=== PATIENT | female | born 1985 | race African-American/Black ===

== ENCOUNTER → 2017-02-04 | Outpatient (CLI) | payer OTHER ==
[2014-10-26 18:09] VITALS: BP 144/94
[2017-02-04 11:06] LABS: BASOPHILS # (AUTO) 0.1 X10^3/uL (0.0-0.1); BASOPHILS % (AUTO) 1.2 % (0.2-1.0); EOSINOPHILS # (AUTO) 0.2 x10^3/uL (0.0-0.2); EOSINOPHILS % (AUTO) 1.5 % (0.9-2.9); HEMATOCRIT 39.9 % (36.0-47.0); HEMOGLOBIN 13.7 g/dL (12.0-16.0); LYMPHOCYTES # (AUTO) 3.5 X10^3/uL (1.3-2.9); LYMPHOCYTES % (AUTO) 34.3 % (21.0-51.0); MEAN CORPUSCULAR HEMOGLOBIN 31.4 pg (27.0-34.0); MEAN CORPUSCULAR HGB CONC 34.2 g/dL (33.0-35.0); MEAN CORPUSCULAR VOLUME 91.7 fL (80.0-100.0); MEAN PLATELET VOLUME 9.2 fL (7.4-11.0); MONOCYTES # (AUTO) 0.6 x10^3/uL (0.3-0.8); MONOCYTES % (AUTO) 5.8 % (0.0-13.0); NEUTROPHILS # (AUTO) 5.8 x10^3/uL (2.2-4.8); NEUTROPHILS % (AUTO) 57.2 % (42.0-75.0); PLATELET COUNT 223 X10^3/uL (150.0-450.0); RED BLOOD COUNT 4.35 X10^6/uL (3.5-5.4); RED CELL DISTRIBUTION WIDTH 13.4 % (11.6-16.5); WHITE BLOOD COUNT 10.2 X10^3/uL (3.6-10.0)
[2017-02-04 11:20] LABS: ALANINE AMINOTRANSFERASE 22 Units/L (12-78); ALBUMIN 3.6 g/dL (3.4-5.0); ALKALINE PHOSPHATASE 75 Units/L (46-116); ASPARTATE AMINO TRANSFERASE 17 Units/L (15-37); BLOOD UREA NITROGEN 13 mg/dL (7-18); CALCIUM 8.4 mg/dL (8.5-10.1); CARBON DIOXIDE 23.7 mmol/L (21-32); CHLORIDE 107 mmol/L (98-107); CREATININE 0.83 mg/dL (0.55-1.02); SODIUM 140 mmol/L (136-145); T4 (THYROXINE) 7.7 ug/dL (4.7-13.3); TOTAL PROTEIN 7.4 g/dL (6.4-8.2); TSH (3RD GENERATION) 1.495 uIU/mL (0.358-3.74); eGFR BLACK RACES > 60 (>60); eGFR NON BLACK RACES > 60 (>60)
== END ==
LOC: LAB 10:35
PROVIDERS: ATTEND Internal Medicine
DX: E11.9 Type 2 diabetes mellitus without complications (principal); E03.8 Other specified hypothyroidism; M79.7 Fibromyalgia
CPT/HCPCS: 36415; 80053; 84436; 84443; 85025

== ENCOUNTER → 2017-05-30 | Outpatient (CLI) | payer OTHER ==
[2014-10-26 18:09] VITALS: BP 144/94
--- NOTE | 2017-05-30 14:10 | RAD ---
HISTORY: Back Pain Study: 5 views of the lumbar spine Comparison: None. Findings: Normal alignment without subluxation or listhesis. Disc height loss at L5-S1. Vertebral body heights are normal. Sacroiliac joints are unremarkable. No evidence for acute fracture can be identified. IMPRESSION: 1. Significant disc height loss at L5-S1. Reported By:
== END | disposition home or self-care (01) ==
LOC: RAD 12:18
PROVIDERS: ATTEND Internal Medicine
DX: M54.5 Low back pain (principal)
CPT/HCPCS: 72110

== ENCOUNTER 2024-10-14 05:22 | Inpatient (IN) ==
--- NOTE | 2024-10-14 05:39 | DR.ALLERGY ---
HPI Time Seen Time Seen by Provider: 10/14/24 05:38 HPI Comment HPI Comment: She noticed swelling around her lips yesterday which has worsened to include her entire face today; no problems with throat pain, difficulty swallowing, cough, wheezing or sob; she was placed on lisinopril about a week ago and denies changes in food intake; this has never happened before H PMH Past Surgical History: Yes Surgical History: Cholecystectomy Family History Family Medical History: Diabetes Mellitus, Coronary Artery Disease and Hypertension Social History Do you use any recreational Drugs:: No ROS Review of Systems Constitutional: No Symptoms Reported Eyes: No Symptoms Reported ENTM: See HPI and Mouth Swelling; negative Mouth Pain, Throat Pain or Throat Swelling Respiratoy: No Symptoms Reported; negative Brassy Cough or Stridor Cardiovascular: No Symptoms Reported Gastrointestinal/Abdominal: No Symptoms Reported Genitourinary: No Symptoms Reported Neurological: No Symptoms Reported Musculoskeletal: No Symptoms Reported Integumentary: No Symptoms Reported Hematologic/Lymphatic: No Symptoms Reported Endocrine: No Symptoms Reported Psychiatric: No Symptoms Reported PE Vitals Vital Signs: Temp Pulse Resp BP Pulse Ox O2 Del Method 10/14/24 06:45 66 12 10/14/24 06:30 147/89 10/14/24 06:30 70 21 98 10/14/24 06:16 67 14 99 10/14/24 06:01 155/85 10/14/24 06:01 155/85 10/14/24 06:01 75 16 97 10/14/24 06:01 155/85 10/14/24 06:00 71 16 99 10/14/24 05:45 97 H 18 98 10/14/24 05:32 90 11 L 98 10/14/24 05:31 98.5 F 101 H 20 153/94 99 Room Air 10/14/24 05:30 178/86 10/14/24 05:30 178/86 10/14/24 05:29 95 H 11 L 98 10/14/24 05:28 153/92 10/14/24 05:28 153/92 10/14/24 05:25 190/124 10/14/24 05:25 190/124 Constitutional Limitations: No Limitations General Appearance: Alert and In No Apparent Distress Head Head Exam: Other (entire lower face including cheeks and lips swollen extensively, able to talk w/o issues) Eyes Eye exam: Normal Appearance ENT ENT Exam: Normal Oropharynx Mouth Exam: Lip Swelling; negative Drooling, Trismus or Tongue Swelling Neck Neck Exam: Normal Inspection Chest Chest Inspection: Normal Inspection Respiratory Respiratory Exam: Normal Lung Sounds Bilat Cardiovascular Cardiovascular Exam: Regular Rate and Normal Rhythm Abdominal Exam Abdominal Exam: Normal Inspection, Normal Bowel Sounds and Soft Extremities Extremities Exam: Normal Inspection Back Back Exam: Normal Inspection Neurologic Neurological Exam: Alert and Oriented X3 Psychiatric Psychiatric Exam: Normal Affect and Normal Mood Skin Skin Exam: Warm, Dry, Intact and Normal Color ROR Labs Reviewed Laboratory Results Reviewed?: Yes 10/14/24 05:48 10/14/24 05:48 Laboratory: WBC 9.2 X10^3/uL (3.6-10.0) 10/14/24 05:48 RBC 4.32 X10^6/uL (3.5-5.4) 10/14/24 05:48 Hgb 13.7 g/dL (12.0-16.0) 10/14/24 05:48 Hct 40.0 % (36.0-47.0) 10/14/24 05:48 MCV 92.7 fL (80.0-100.0) 10/14/24 05:48 MCH 31.6 pg (27.0-34.0) 10/14/24 05:48 MCHC 34.1 g/dL (33.0-35.0) 10/14/24 05:48 RDW 14.1 % (11.6-16.5) 10/14/24 05:48 Plt Count 295 X10^3/uL (150.0-450.0) 10/14/24 05:48 MPV 8.1 fL (7.4-11.0) 10/14/24 05:48 Neut % (Auto) 56.0 % (42.0-75.0) 10/14/24 05:48 Lymph % (Auto) 33.3 % (21.0-51.0) 10/14/24 05:48 [place] % (Auto) 7.4 % (0.0-13.0) 10/14/24 05:48 Eos % (Auto) 2.1 % (0.9-2.9) 10/14/24 05:48 Baso % (Auto) 1.2 % (0.2-1.0) H 10/14/24 05:48 Neut # (Auto) 5.2 x10^3/uL (2.2-4.8) H 10/14/24 05:48 Lymph # (Auto) 3.1 X10^3/uL (1.3-2.9) H 10/14/24 05:48 [place] # (Auto) 0.7 x10^3/uL (0.3-0.8) 10/14/24 05:48 Eos # (Auto) 0.2 x10^3/uL (0.0-0.2) 10/14/24 05:48 Baso # (Auto) 0.1 X10^3/uL (0.0-0.1) 10/14/24 05:48 Absolute Nucleated RBC 0.3 /100WBC 10/14/24 05:48 Sodium 142 mmol/L (136-145) 10/14/24 05:48 Corrected Sodium TNP 10/14/24 05:48 Potassium 3.1 mmol/L (3.5-5.1) L 10/14/24 05:48 Chloride 106 mmol/L (98-107) 10/14/24 05:48 Carbon Dioxide 28.2 mmol/L (21-32) 10/14/24 05:48 BUN 12 mg/dL (7-18) 10/14/24 05:48 Creatinine 0.85 mg/dL (0.55-1.02) 10/14/24 05:48 Est GFR (MDRD) Af Amer > 60 (>60) 10/14/24 05:48 Est GFR (MDRD) Non-Af > 60 (>60) 10/14/24 05:48 Glucose 109 mg/dL (65-99) H 10/14/24 05:48 Calcium 8.2 mg/dL (8.5-10.1) L 10/14/24 05:48 Corrected Calcium TNP 10/14/24 05:48 Total Bilirubin 0.30 mg/dL (0.2-1.0) 10/14/24 05:48 AST 19 Units/L (15-37) 10/14/24 05:48 ALT 23 Units/L (12-78) 10/14/24 05:48 Alkaline Phosphatase 77 Units/L (46-116) 10/14/24 05:48 Total Protein 7.3 g/dL (6.4-8.2) 10/14/24 05:48 Albumin 3.5 g/dL (3.4-5.0) 10/14/24 05:48 Globulin 3.8 g/dL (2.5-4.5) 10/14/24 05:48 Albumin/Globulin Ratio 0.9 Ratio (1.1-2.1) L 10/14/24 05:48 Other Results Comments: Pt is a/o x 4, nontoxic appearing w/o signs of respiratory compromise. VSS and she has ambulated to bathroom w/o problems. She will be discharged and has been told explicitly that she cannot take lisinopril or any other jenelle inhibitor in the future. She and express understanding. Opioid Opioid Risk Tool Total: 0 Total Score Risk Category: Low Risk Copyright: [facility] predicting aberrant behaviors Discharge Plan Diagnosis Discharge Problem: Angioedema, JENELLE inhibitor-aggravated angioedema, Allergy to JENELLE inhibitors, Acute hypokalemia Discharge Plan Patient Disposition: 01 HOME, SELF-CARE Condition: Stable Prescriptions: New amlodipine 5 mg tablet 5 mg PO QDAY 30 Days Qty: 30 1RF prednisone 20 mg tablet 20 mg PO QDAY Qty: 7 0RF famotidine 40 mg tablet 40 mg PO BID 15 Days Qty: 30 0RF hydroxyzine HCl 25 mg tablet 25 mg PO QID PRNQty: 30 0RF Discontinued lisinopril 5 mg tablet 5 mg PO QDAY 30 Days Qty: 30 1RF No Action cholecalciferol (vitamin D3) 1,250 mcg (50,000 unit) capsule 1,250 mcg PO QWEEK 90 Days Qty: 13 0RF Health Concerns: Post Hospitalization: new medications and changes needed to prevent readmission or further decline. Pt educated and given instructions on all concerns. Plan of Treatment: Continue with present treatment and follow up plan. Pt is to keep follow up appointment as instructed and take medications as ordered. Orders to Discharge Patient Discharge Orders: Discharge (Routine); Ordered 10/14/24 Ordered By: Oma Huitron Follow ups/Referrals Follow ups/Referrals: NFD,None [Primary Care Provider] - 3 days Instructions Instructions: Angioedema, Mvdv-[id number] Activity Restrictions/Additional Instructions: return to ER immediately if any shortness of breath, wheezing or problems breathing develop be sure to advise pcp of lisinopril allergy start amlodipine for blood pressure, keep a record and follow up with pcp edgardo Stand Alone Forms: Find Help Web Site, Post Hospital Follow Up Care Print Language: BENINESE
[2024-10-14 05:43] VITALS: BMI 37.2
[2024-10-14 05:57] LABS: MEAN PLATELET VOLUME 8.1 fL (7.4-11.0); RED CELL DISTRIBUTION WIDTH 14.1 % (11.6-16.5)
[2024-10-14 06:07] LABS: CREATININE 0.85 mg/dL (0.55-1.02); eGFR NON BLACK RACES > 60 (>60)
[2024-10-14] MEDS: BENADRYL INJ 50 MG VIAL IV STA (06:36)
[2024-10-14] MEDS: K-DUR TAB 20 MEQ PO STA (06:36)
[2024-10-14] MEDS: PEPCID 20 MG VIAL 20 MG in NS 50 ML IV 50 ML IV ONE (06:51)
[2024-10-14] MEDS: NS 1,000 ML IV 1,000 ML IV ONE (08:34)
[2024-10-14] MEDS: K-RIDER 10 MEQ/100 ML WATER 10 MEQ/100 ML BAG IV ONE (08:34)
[2024-10-14] MEDS ORDERED: NS 1,000 ML IV 1,000 ML IV SCH (09:24)
[2024-10-14] MEDS ORDERED: ZOFRAN TAB 4 MG PO PRN (09:24)
[2024-10-14] MEDS: NS 1,000 ML IV 1,000 ML ONE (09:26)
[2024-10-14] MEDS: K-DUR TAB 20 MEQ PO ONE (09:26)
[2024-10-14] MEDS: CONSULT PHARMACY - POTASSIUM & MAGNESIUM XX SCH (09:27)
[2024-10-14] MEDS: NS + KCL 20 MEQ/L 1,000 ML IV SCH (09:50)
[2024-10-14] MEDS ORDERED: APRESOLINE INJ 20 MG VIAL IVP PRN (10:11)
--- NOTE | 2024-10-14 10:26 | DR.H&P ---
H&P History & Physical for Day of: H&P Date: 10/14/24 Chief Complaint Chief Complaint: lip swelling History of Present Illness History of Present Illness: Patient is a 39-year-old female with a past medical history of hypertension, GERD presented with worsening lip and mouth swelling that started yesterday evening. She recently reestablished with PCP and was started on lisinopril last week. She took her third dose yesterday morning. She states she noticed her mouth and lip swelling around 4 PM which progressed overnight so she came to the ER. ER workup included labs, which showed low potassium. She was given IV steroids, Benadryl and famotidine. Her lip and mouth swelling remained the same. She denied having any shortness of breath, trouble breathing or swallowing. She was admitted for observation for angioedema. She states her mouth swelling is about the same, has not gotten worse. She denies any rash. Her blood pressure has been elevated. Labs/imaging reviewed: - WBC 9.2 hemoglobin 13.7 potassium 3.1 creatinine 0.85 Plan: Admit to MedSurg, monitor swelling closely. Monitor respiratory status. Patient is currently on room air and denies any complaints. Continue Solu- Medrol and famotidine start amlodipine. Add hydralazine as needed. Replace electrolytes as per protocol. Continue gentle hydration. Monitor a.m. labs and imaging. Past Medical History Past Medical History: Hypertension Past Surgical History Surgical History: Cholecystectomy Family History Family Medical History: Diabetes Mellitus, Coronary Artery Disease and Hypertension Social History Does patient currently use any type of tobacco product: Yes Have you used tobacco products in the last 12 months: Yes Type of Tobacco Use: Cigarettes Allergies Allergies Allergy/AdvReac Type Severity Reaction Status Date / Time lisinopril Allergy Verified 10/14/24 05:43 Labs 10/14/24 05:48 10/14/24 05:48 Labs: Laboratory WBC 9.2 X10^3/uL (3.6-10.0) 10/14/24 05:48 RBC 4.32 X10^6/uL (3.5-5.4) 10/14/24 05:48 Hgb 13.7 g/dL (12.0-16.0) 10/14/24 05:48 Hct 40.0 % (36.0-47.0) 10/14/24 05:48 MCV 92.7 fL (80.0-100.0) 10/14/24 05:48 MCH 31.6 pg (27.0-34.0) 10/14/24 05:48 MCHC 34.1 g/dL (33.0-35.0) 10/14/24 05:48 RDW 14.1 % (11.6-16.5) 10/14/24 05:48 Plt Count 295 X10^3/uL (150.0-450.0) 10/14/24 05:48 MPV 8.1 fL (7.4-11.0) 10/14/24 05:48 Neut % (Auto) 56.0 % (42.0-75.0) 10/14/24 05:48 Lymph % (Auto) 33.3 % (21.0-51.0) 10/14/24 05:48 [place] % (Auto) 7.4 % (0.0-13.0) 10/14/24 05:48 Eos % (Auto) 2.1 % (0.9-2.9) 10/14/24 05:48 Baso % (Auto) 1.2 % (0.2-1.0) H 10/14/24 05:48 Neut # (Auto) 5.2 x10^3/uL (2.2-4.8) H 10/14/24 05:48 Lymph # (Auto) 3.1 X10^3/uL (1.3-2.9) H 10/14/24 05:48 [place] # (Auto) 0.7 x10^3/uL (0.3-0.8) 10/14/24 05:48 Eos # (Auto) 0.2 x10^3/uL (0.0-0.2) 10/14/24 05:48 Baso # (Auto) 0.1 X10^3/uL (0.0-0.1) 10/14/24 05:48 Absolute Nucleated RBC 0.3 /100WBC 10/14/24 05:48 Sodium 142 mmol/L (136-145) 10/14/24 05:48 Corrected Sodium TNP 10/14/24 05:48 Potassium 3.1 mmol/L (3.5-5.1) L 10/14/24 05:48 Chloride 106 mmol/L (98-107) 10/14/24 05:48 Carbon Dioxide 28.2 mmol/L (21-32) 10/14/24 05:48 BUN 12 mg/dL (7-18) 10/14/24 05:48 Creatinine 0.85 mg/dL (0.55-1.02) 10/14/24 05:48 Est GFR (MDRD) Af Amer > 60 (>60) 10/14/24 05:48 Est GFR (MDRD) Non-Af > 60 (>60) 10/14/24 05:48 Glucose 109 mg/dL (65-99) H 10/14/24 05:48 Calcium 8.2 mg/dL (8.5-10.1) L 10/14/24 05:48 Corrected Calcium TNP 10/14/24 05:48 Total Bilirubin 0.30 mg/dL (0.2-1.0) 10/14/24 05:48 AST 19 Units/L (15-37) 10/14/24 05:48 ALT 23 Units/L (12-78) 10/14/24 05:48 Alkaline Phosphatase 77 Units/L (46-116) 10/14/24 05:48 Total Protein 7.3 g/dL (6.4-8.2) 10/14/24 05:48 Albumin 3.5 g/dL (3.4-5.0) 10/14/24 05:48 Globulin 3.8 g/dL (2.5-4.5) 10/14/24 05:48 Albumin/Globulin Ratio 0.9 Ratio (1.1-2.1) L 10/14/24 05:48 Review of Systems Constitutional: No Symptoms Reported Eyes: No Symptoms Reported ENT: No Symptoms Reported Respiratory: No Symptoms Reported Cardiovascular: No Symptoms Reported Gastrointestinal: No Symptoms Reported Genitourinary: No Symptoms Reported Musculoskeletal: No Symptoms Reported Skin: Other (Mouth and lip swelling) Neurological: No Symptoms Reported Physical Exam Vital Signs: Vital Signs Temperature 98.5 F Pulse Rate [Left] 72 Pulse Rate 69 Pulse Rate 72 Pulse Rate 72 Pulse Rate 79 Pulse Rate 86 Pulse Rate 61 Pulse Rate 58 Pulse Rate 58 Pulse Rate 75 Pulse Rate 73 Pulse Rate 59 Pulse Rate 66 Pulse Rate 70 Pulse Rate 67 Pulse Rate 75 Pulse Rate 71 Pulse Rate 97 Pulse Rate 90 Pulse Rate 101 Pulse Rate 95 Respiratory Rate 17 Respiratory Rate 21 Respiratory Rate 19 Respiratory Rate 21 Respiratory Rate 14 Respiratory Rate 18 Respiratory Rate 22 Respiratory Rate 23 Respiratory Rate 23 Respiratory Rate 15 Respiratory Rate 19 Respiratory Rate 21 Respiratory Rate 12 Respiratory Rate 21 Respiratory Rate 14 Respiratory Rate 16 Respiratory Rate 16 Respiratory Rate 18 Respiratory Rate 11 Respiratory Rate 20 Respiratory Rate 11 Blood Pressure [Left Arm] 161/86 Blood Pressure 165/85 Blood Pressure 161/86 Blood Pressure 153/82 Blood Pressure 180/84 Blood Pressure 159/86 Blood Pressure 147/89 Blood Pressure 155/85 Blood Pressure 155/85 Blood Pressure 155/85 Blood Pressure 153/94 Blood Pressure 178/86 Blood Pressure 178/86 Blood Pressure 153/92 Blood Pressure 153/92 Blood Pressure 190/124 Blood Pressure 190/124 O2 Sat by Pulse Oximetry 100 O2 Sat by Pulse Oximetry 99 O2 Sat by Pulse Oximetry 100 O2 Sat by Pulse Oximetry 99 O2 Sat by Pulse Oximetry 99 O2 Sat by Pulse Oximetry 100 O2 Sat by Pulse Oximetry 98 O2 Sat by Pulse Oximetry 99 O2 Sat by Pulse Oximetry 98 O2 Sat by Pulse Oximetry 99 O2 Sat by Pulse Oximetry 97 O2 Sat by Pulse Oximetry 99 O2 Sat by Pulse Oximetry 98 O2 Sat by Pulse Oximetry 98 O2 Sat by Pulse Oximetry 99 O2 Sat by Pulse Oximetry 98 Oriented: Normal Respiratory: Clear Throughout Cardiovascular: Normal Auscultation: Bowel Sounds: Normal Palpation: Normal Tenderness: Normal Skin: Other (Lip and mouth swelling) Musculoskeletal: Normal Psychiatric: Normal Mood Description: Calm Affect: Normal Speech Pattern: Clear and Appropriate Assessment/Plan (1) Allergy to JENELLE inhibitors: Status: Acute (2) JENELLE inhibitor-aggravated angioedema: Qualifiers: Encounter type: initial encounter Qualified Code(s): T78.3XXA - Angioneurotic edema, initial encounter; T46.4X5A - Adverse effect of amffsdbuytm-tkkiscvclw-[id number] inhibitors, initial encounter Status: Acute (3) Acute hypokalemia: Status: Acute Review H&P Reviewed: Yes Patient was examined?: Yes
[2024-10-14] MEDS: NORVASC TAB 5 MG PO SCH (10:54)
[2024-10-14] MEDS: NICOTINE PATCH TD SCH (13:02)
[2024-10-14] MEDS: TYLENOL 325 MG TAB PO PRN (19:19)
[2024-10-15 05:58] LABS: MEAN PLATELET VOLUME 8.8 fL (7.4-11.0); RED CELL DISTRIBUTION WIDTH 14.0 % (11.6-16.5)
[2024-10-15 06:12] LABS: COR NA(FOR HYPERGLY) 141 mmol/L (136-145); CREATININE 0.88 mg/dL (0.55-1.02); eGFR NON BLACK RACES > 60 (>60)
[2024-10-15] MEDS: PEPCID TAB 40 MG PO SCH (08:36)
[2024-10-15] MEDS: CLARITIN PO SCH (09:41)
--- NOTE | 2024-10-15 10:49 | PCM.PROG ---
Progress Note Progress Note for Day of Date of Exam: 10/15/24 Subjective Subjective: Patient is a 39-year-old female admitted for angioedema due to reaction to lisinopril. This morning she reports some improvement in her swelling in her face and lips. Still has significant swelling. Labs/imaging: WBC 11.1, hemoglobin 13.1, platelets 276, sodium 140, potassium 3.8, creatinine 0.88, glucose 127,. Patient is currently on IV fluids normal saline at 80 mL/h, IV Solu-Medrol 80 mg every 8 hours, amlodipine 5 mg, and pepcid. Will add a antihistamine Claritin. Otherwise continue with current treatment plan. Continue closely monitor and follow-up labs. Past Medical Family Social History Allergies: Allergies lisinopril Allergy (Verified 10/14/24 05:43) Review of Systems ROS changes noted: see HPI Vital Signs and I&O's Vital Signs: Vital Signs Temperature 98.2 F Temperature 97.8 F Pulse Rate [Left] 82 Pulse Rate [Left] 74 Respiratory Rate 19 Respiratory Rate 20 Blood Pressure [Left Arm] 139/85 Blood Pressure [Left Arm] 137/79 O2 Sat by Pulse Oximetry 96 O2 Sat by Pulse Oximetry 96 Intake and Output: Intake & Output 10/12/24 10/13/24 10/14/24 10/15/24 23:59 23:59 23:59 23:59 Intake Total 1633 / 1633 768 / 768 Output Total 150 / 150 Balance 1633 / 1633 618 / 618 Physical Exam Oriented: Normal Cardiovascular: Normal Auscultation: Bowel Sounds: Normal Tenderness: Normal Skin: Other (Lip and mouth swelling) Musculoskeletal: Normal Psychiatric: Normal Mood Description: Calm Affect: Normal Speech Pattern: Clear and Appropriate Laboratory and Diagnostics 10/15/24 05:15 10/15/24 05:15 Labs: Laboratory WBC 11.1 X10^3/uL (3.6-10.0) H 10/15/24 05:15 RBC 4.22 X10^6/uL (3.5-5.4) 10/15/24 05:15 Hgb 13.1 g/dL (12.0-16.0) 10/15/24 05:15 Hct 39.1 % (36.0-47.0) 10/15/24 05:15 MCV 92.7 fL (80.0-100.0) 10/15/24 05:15 MCH 30.9 pg (27.0-34.0) 10/15/24 05:15 MCHC 33.4 g/dL (33.0-35.0) 10/15/24 05:15 RDW 14.0 % (11.6-16.5) 10/15/24 05:15 Plt Count 276 X10^3/uL (150.0-450.0) 10/15/24 05:15 MPV 8.8 fL (7.4-11.0) 10/15/24 05:15 Neut % (Auto) 81.4 % (42.0-75.0) H 10/15/24 05:15 Lymph % (Auto) 15.6 % (21.0-51.0) L 10/15/24 05:15 [place] % (Auto) 2.5 % (0.0-13.0) 10/15/24 05:15 Eos % (Auto) 0.0 % (0.9-2.9) L 10/15/24 05:15 Baso % (Auto) 0.5 % (0.2-1.0) 10/15/24 05:15 Neut # (Auto) 9.1 x10^3/uL (2.2-4.8) H 10/15/24 05:15 Lymph # (Auto) 1.7 X10^3/uL (1.3-2.9) 10/15/24 05:15 [place] # (Auto) 0.3 x10^3/uL (0.3-0.8) 10/15/24 05:15 Eos # (Auto) 0.0 x10^3/uL (0.0-0.2) 10/15/24 05:15 Baso # (Auto) 0.1 X10^3/uL (0.0-0.1) 10/15/24 05:15 Absolute Nucleated RBC 0.0 /100WBC 10/15/24 05:15 Sodium 140 mmol/L (136-145) 10/15/24 05:15 Corrected Sodium 141 mmol/L (136-145) 10/15/24 05:15 Potassium 3.8 mmol/L (3.5-5.1) 10/15/24 05:15 Chloride 107 mmol/L (98-107) 10/15/24 05:15 Carbon Dioxide 27.5 mmol/L (21-32) 10/15/24 05:15 BUN 12 mg/dL (7-18) 10/15/24 05:15 Creatinine 0.88 mg/dL (0.55-1.02) 10/15/24 05:15 Est GFR (MDRD) Af Amer > 60 (>60) 10/15/24 05:15 Est GFR (MDRD) Non-Af > 60 (>60) 10/15/24 05:15 Glucose 127 mg/dL (65-99) H 10/15/24 05:15 Calcium 8.4 mg/dL (8.5-10.1) L 10/15/24 05:15 Corrected Calcium TNP 10/15/24 05:15 Magnesium 2.0 mg/dL (2.0-2.9) 10/15/24 05:15 Total Bilirubin 0.20 mg/dL (0.2-1.0) 10/15/24 05:15 AST 12 Units/L (15-37) L 10/15/24 05:15 ALT 23 Units/L (12-78) 10/15/24 05:15 Alkaline Phosphatase 74 Units/L (46-116) 10/15/24 05:15 Total Protein 7.1 g/dL (6.4-8.2) 10/15/24 05:15 Albumin 3.4 g/dL (3.4-5.0) 10/15/24 05:15 Globulin 3.7 g/dL (2.5-4.5) 10/15/24 05:15 Albumin/Globulin Ratio 0.9 Ratio (1.1-2.1) L 10/15/24 05:15 Plan (1) Allergy to JENELLE inhibitors: Status: Acute (2) JENELLE inhibitor-aggravated angioedema: Status: Acute Qualifiers: Encounter type: initial encounter Qualified Code(s): T78.3XXA - Angioneurotic edema, initial encounter; T46.4X5A - Adverse effect of afrbmpymajd-xabyvfwjhd-dkmojg inhibitors, initial encounter (3) Acute hypokalemia: Status: Acute
[2024-10-16 04:40] VITALS: RESP 21; O2SAT 98
[2024-10-16 05:54] LABS: MEAN PLATELET VOLUME 8.9 fL (7.4-11.0); RED CELL DISTRIBUTION WIDTH 14.1 % (11.6-16.5)
[2024-10-16 06:15] LABS: COR CA(FOR HYPOALB) 8.8 mg/dL (8.5-10.1); COR NA(FOR HYPERGLY) 141 mmol/L (136-145); CREATININE 0.80 mg/dL (0.55-1.02); eGFR NON BLACK RACES > 60 (>60)
[2024-10-16 11:18] VITALS: PULSE 53; TEMP 97.8
[2024-10-16 11:19] VITALS: BP 148/84
--- NOTE | 2024-10-17 10:00 | W.DIS.FURT ---
Summary of Discharge Discharge Summary of Date Date of Exam: 10/16/24 Admission Date Date of Admission: 10/14/24 Admission Diagnosis Patient Problems (Updated 10/14/24 @ 10:26 by Yanet King MD) Acute hypokalemia (Acute) E87.6 Allergy to JENELLE inhibitors (Acute) Z88.8 JENELLE inhibitor-aggravated angioedema (Acute) T78.3XXA, T46.4X5A Angioedema (Acute) T78.3XXA Hospital Course: Patient is a 39-year-old female admitted for angioedema due to reaction to lisinopril. Her hospital/treatment course included IV fluids normal saline at 80 mL/h, IV Solu-Medrol 80 mg every 8 hours, amlodipine 5 mg, pepcid, and Claritin. Her symptoms significantly improved with the treatments. Edema resolving. Patient was discharged in stable condition. She was prescribed a Medrol Dosepak and to continue with Claritin and Pepcid to help completely resolve symptoms. Prescription also sent for amlodipine for blood pressure. Instructed to follow-up with PCP in 1 week. Vital Signs: Vital Signs (72 hours) 10/14/24 05:25 10/14/24 05:25 10/14/24 05:28 Temperature Pulse Rate Pulse Rate [Left] Respiratory Rate Blood Pressure 190/124 190/124 153/92 Blood Pressure [Left Arm] Blood Pressure [Right Arm] O2 Sat by Pulse Oximetry Oxygen Delivery Method 10/14/24 05:28 10/14/24 05:29 10/14/24 05:30 Temperature Pulse Rate 95 H Pulse Rate [Left] Respiratory Rate 11 L Blood Pressure 153/92 178/86 Blood Pressure [Left Arm] Blood Pressure [Right Arm] O2 Sat by Pulse Oximetry 98 Oxygen Delivery Method 10/14/24 05:30 10/14/24 05:31 10/14/24 05:32 Temperature 98.5 F Pulse Rate 101 H 90 Pulse Rate [Left] Respiratory Rate 20 11 L Blood Pressure 178/86 153/94 Blood Pressure [Left Arm] Blood Pressure [Right Arm] O2 Sat by Pulse Oximetry 99 98 Oxygen Delivery Method Room Air 10/14/24 05:45 10/14/24 06:00 10/14/24 06:01 Temperature Pulse Rate 97 H 71 Pulse Rate [Left] Respiratory Rate 18 16 Blood Pressure 155/85 Blood Pressure [Left Arm] Blood Pressure [Right Arm] O2 Sat by Pulse Oximetry 98 99 Oxygen Delivery Method 10/14/24 06:01 10/14/24 06:01 10/14/24 06:01 Temperature Pulse Rate 75 Pulse Rate [Left] Respiratory Rate 16 Blood Pressure 155/85 155/85 Blood Pressure [Left Arm] Blood Pressure [Right Arm] O2 Sat by Pulse Oximetry 97 Oxygen Delivery Method 10/14/24 06:16 10/14/24 06:30 10/14/24 06:30 Temperature Pulse Rate 67 70 Pulse Rate [Left] Respiratory Rate 14 21 Blood Pressure 147/89 Blood Pressure [Left Arm] Blood Pressure [Right Arm] O2 Sat by Pulse Oximetry 99 98 Oxygen Delivery Method 10/14/24 06:45 10/14/24 07:00 10/14/24 07:00 Temperature Pulse Rate 66 59 L Pulse Rate [Left] Respiratory Rate 12 21 Blood Pressure 159/86 Blood Pressure [Left Arm] Blood Pressure [Right Arm] O2 Sat by Pulse Oximetry Oxygen Delivery Method 10/14/24 07:15 10/14/24 07:24 10/14/24 07:32 Temperature Pulse Rate 73 75 Pulse Rate [Left] Respiratory Rate 19 15 Blood Pressure 180/84 Blood Pressure [Left Arm] Blood Pressure [Right Arm] O2 Sat by Pulse Oximetry Oxygen Delivery Method 10/14/24 07:35 10/14/24 07:45 10/14/24 08:00 Temperature Pulse Rate 58 L 58 L 61 Pulse Rate [Left] Respiratory Rate 23 23 22 Blood Pressure Blood Pressure [Left Arm] Blood Pressure [Right Arm] O2 Sat by Pulse Oximetry 99 98 Oxygen Delivery Method 10/14/24 08:01 10/14/24 08:15 10/14/24 08:20 Temperature Pulse Rate 86 79 Pulse Rate [Left] Respiratory Rate 18 14 Blood Pressure 153/82 Blood Pressure [Left Arm] Blood Pressure [Right Arm] O2 Sat by Pulse Oximetry 100 99 Oxygen Delivery Method 10/14/24 08:30 10/14/24 08:31 10/14/24 08:49 Temperature Pulse Rate 72 72 Pulse Rate [Left] Respiratory Rate 21 19 Blood Pressure 161/86 Blood Pressure [Left Arm] Blood Pressure [Right Arm] O2 Sat by Pulse Oximetry 99 100 Oxygen Delivery Method 10/14/24 08:55 10/14/24 09:04 10/14/24 09:15 Temperature Pulse Rate 69 Pulse Rate [Left] 72 Respiratory Rate 21 17 Blood Pressure 165/85 Blood Pressure [Left Arm] 161/86 Blood Pressure [Right Arm] O2 Sat by Pulse Oximetry 99 100 Oxygen Delivery Method Room Air 10/14/24 09:20 10/14/24 09:20 10/14/24 12:00 Temperature 98.3 F 97.8 F Pulse Rate Pulse Rate [Left] 74 88 Respiratory Rate 18 19 Blood Pressure Blood Pressure [Left Arm] 144/92 149/82 Blood Pressure [Right Arm] O2 Sat by Pulse Oximetry 96 99 Oxygen Delivery Method Room Air Room Air Room Air 10/14/24 16:00 10/14/24 19:00 10/14/24 19:19 Temperature 98.2 F Pulse Rate Pulse Rate [Left] 74 Respiratory Rate 19 18 Blood Pressure Blood Pressure [Left Arm] 160/84 Blood Pressure [Right Arm] O2 Sat by Pulse Oximetry 98 Oxygen Delivery Method Room Air Room Air 10/14/24 20:00 10/14/24 21:18 10/14/24 23:23 Temperature 98.1 F 98.0 F Pulse Rate Pulse Rate [Left] 69 89 Respiratory Rate 19 18 20 Blood Pressure Blood Pressure [Left Arm] 156/93 159/96 Blood Pressure [Right Arm] O2 Sat by Pulse Oximetry 96 92 L Oxygen Delivery Method Room Air Room Air 10/14/24 23:26 10/15/24 04:00 10/15/24 07:00 Temperature 97.8 F Pulse Rate Pulse Rate [Left] 74 Respiratory Rate 20 Blood Pressure Blood Pressure [Left Arm] 159/79 137/79 Blood Pressure [Right Arm] O2 Sat by Pulse Oximetry 96 Oxygen Delivery Method Room Air Room Air 10/15/24 07:42 10/15/24 12:00 10/15/24 16:00 Temperature 98.2 F 97.7 F 97.9 F Pulse Rate Pulse Rate [Left] 82 71 67 Respiratory Rate 19 18 19 Blood Pressure Blood Pressure [Left Arm] 139/85 152/86 147/81 Blood Pressure [Right Arm] O2 Sat by Pulse Oximetry 96 97 98 Oxygen Delivery Method Room Air Room Air Room Air 10/15/24 19:00 10/15/24 20:00 10/16/24 00:00 Temperature 97.7 F 98.1 F Pulse Rate Pulse Rate [Left] 66 56 L Respiratory Rate 19 20 Blood Pressure Blood Pressure [Left Arm] Blood Pressure [Right Arm] 158/81 156/86 O2 Sat by Pulse Oximetry 97 99 Oxygen Delivery Method Room Air Room Air Room Air 10/16/24 04:00 10/16/24 07:00 Temperature 97.9 F Pulse Rate Pulse Rate [Left] 74 Respiratory Rate 21 Blood Pressure Blood Pressure [Left Arm] Blood Pressure [Right Arm] 159/93 O2 Sat by Pulse Oximetry 98 Oxygen Delivery Method Room Air Room Air Labs: Laboratory Last Values WBC 17.1 X10^3/uL (3.6-10.0) H 10/16/24 05:24 RBC 4.06 X10^6/uL (3.5-5.4) 10/16/24 05:24 Hgb 12.7 g/dL (12.0-16.0) 10/16/24 05:24 Hct 37.5 % (36.0-47.0) 10/16/24 05:24 MCV 92.5 fL (80.0-100.0) 10/16/24 05:24 MCH 31.3 pg (27.0-34.0) 10/16/24 05:24 MCHC 33.8 g/dL (33.0-35.0) 10/16/24 05:24 RDW 14.1 % (11.6-16.5) 10/16/24 05:24 Plt Count 272 X10^3/uL (150.0-450.0) 10/16/24 05:24 MPV 8.9 fL (7.4-11.0) 10/16/24 05:24 Neut % (Auto) 84.5 % (42.0-75.0) H 10/16/24 05:24 Lymph % (Auto) 10.2 % (21.0-51.0) L 10/16/24 05:24 [place] % (Auto) 4.9 % (0.0-13.0) 10/16/24 05:24 Eos % (Auto) 0.0 % (0.9-2.9) L 10/16/24 05:24 Baso % (Auto) 0.4 % (0.2-1.0) 10/16/24 05:24 Neut # (Auto) 14.5 x10^3/uL (2.2-4.8) H 10/16/24 05:24 Lymph # (Auto) 1.7 X10^3/uL (1.3-2.9) 10/16/24 05:24 [place] # (Auto) 0.8 x10^3/uL (0.3-0.8) 10/16/24 05:24 Eos # (Auto) 0.0 x10^3/uL (0.0-0.2) 10/16/24 05:24 Baso # (Auto) 0.1 X10^3/uL (0.0-0.1) 10/16/24 05:24 Absolute Nucleated RBC 0.0 /100WBC 10/16/24 05:24 Sodium 140 mmol/L (136-145) 10/16/24 05:24 Corrected Sodium 141 mmol/L (136-145) 10/16/24 05:24 Potassium 4.0 mmol/L (3.5-5.1) 10/16/24 05:24 Chloride 107 mmol/L (98-107) 10/16/24 05:24 Carbon Dioxide 26.3 mmol/L (21-32) 10/16/24 05:24 BUN 16 mg/dL (7-18) 10/16/24 05:24 Creatinine 0.80 mg/dL (0.55-1.02) 10/16/24 05:24 Est GFR (MDRD) Af Amer > 60 (>60) 10/16/24 05:24 Est GFR (MDRD) Non-Af > 60 (>60) 10/16/24 05:24 Glucose 137 mg/dL (65-99) H 10/16/24 05:24 Calcium 8.2 mg/dL (8.5-10.1) L 10/16/24 05:24 Corrected Calcium 8.8 mg/dL (8.5-10.1) 10/16/24 05:24 Magnesium 2.0 mg/dL (2.0-2.9) 10/15/24 05:15 Total Bilirubin 0.10 mg/dL (0.2-1.0) L 10/16/24 05:24 AST 12 Units/L (15-37) L 10/16/24 05:24 ALT 24 Units/L (12-78) 10/16/24 05:24 Alkaline Phosphatase 79 Units/L (46-116) 10/16/24 05:24 Total Protein 7.0 g/dL (6.4-8.2) 10/16/24 05:24 Albumin 3.2 g/dL (3.4-5.0) L 10/16/24 05:24 Globulin 3.8 g/dL (2.5-4.5) 10/16/24 05:24 Albumin/Globulin Ratio 0.8 Ratio (1.1-2.1) L 10/16/24 05:24 Reason For Visit: ANGIOEDEMA Discharge Date Discharge Date: 10/16/24 Discharge Diagnosis All Active Problems (Updated 10/14/24 @ 10:26 by Yanet King MD) Acute hypokalemia (Acute) Allergy to JENELLE inhibitors (Acute) JENELLE inhibitor-aggravated angioedema (Acute) Angioedema (Acute) Vitamin D deficiency (Acute) Obesity (Acute) HTN (hypertension) (Acute) Wellness examination (Acute) Eczema of both upper extremities (Acute) Delivery normal (Acute) Left against medical advice (Acute) Plan of Treatment: Continue with present treatment and follow up plan. Pt is to keep follow up appointment as instructed and take medications as ordered. Discharge Medications Discharge Medications: lisinopril Allergy (Verified 10/14/24 05:43) New Prescriptions amlodipine 5 mg tablet 5 mg PO QDAY 30 days #30 tabs 10/14/24 [Rx] famotidine 40 mg tablet 40 mg PO BID 15 days #30 tabs 10/14/24 [Rx] hydroxyzine HCl 25 mg tablet 25 mg PO QID PRN #30 tabs 10/14/24 [Rx] prednisone 20 mg tablet 20 mg PO QDAY #7 tabs 10/14/24 [Rx] Discharge Disposition Assessment: No distress noted at discharge. Discharge Plan Discharge Plan Hospital Course: Patient is a 39-year-old female admitted for angioedema due to reaction to lisinopril. Her hospital/treatment course included IV fluids normal saline at 80 mL/h, IV Solu-Medrol 80 mg every 8 hours, amlodipine 5 mg, pepcid, and Claritin. Her symptoms significantly improved with the treatments. Edema resolving. Patient was discharged in stable condition. She was prescribed a Medrol Dosepak and to continue with Claritin and Pepcid to help completely resolve symptoms. Prescription also sent for amlodipine for blood pressure. Instructed to follow-up with PCP in 1 week. Patient Disposition: 01 HOME, SELF-CARE Condition: Stable Health Concerns: Post Hospitalization: new medications and changes needed to prevent readmission or further decline. Pt educated and given instructions on all concerns. Care Plan Goals: Problem: Pain/Alteration in Comfort Goal: Improve/ Resolve Pain; Achieve Pain Tolerance Instructions: Take pain medications as prescribed. Contact your primary care provider if your pain is unrelieved or worsens. Follow up with primary care provider as directed. Plan of Treatment: Continue with present treatment and follow up plan. Pt is to keep follow up appointment as instructed and take medications as ordered. Assessment: No distress noted at discharge. Prescriptions: New amlodipine 5 mg tablet 5 mg PO QDAY 30 Days Qty: 30 1RF prednisone 20 mg tablet 20 mg PO QDAY Qty: 7 0RF famotidine 40 mg tablet 40 mg PO BID 15 Days Qty: 30 0RF hydroxyzine HCl 25 mg tablet 25 mg PO QID PRNQty: 30 0RF Discontinued lisinopril 5 mg tablet 5 mg PO QDAY 30 Days Qty: 30 1RF No Action cholecalciferol (vitamin D3) 1,250 mcg (50,000 unit) capsule 1,250 mcg PO QWEEK 90 Days Qty: 13 0RF Follow ups/Referrals Follow ups/Referrals: Yanet King MD [STAFF PHYSICIAN, Unknown] - 10/20/24 2:30 pm Instructions Instructions: Angioedema, [id number]-[id number], Form - Blood Pressure Record Sheet, Managing Your Hypertension Activity Restrictions/Additional Instructions: return to ER immediately if any shortness of breath, wheezing or problems breathing develop be sure to advise pcp of lisinopril allergy start amlodipine for blood pressure, keep a record and follow up with pcp edgardo Stand Alone Forms: Excuse From Work or School, Find Help Web Site, Post Hospital Follow Up Care Print Language: OMANI
== END 2024-10-16 10:30 | disposition home or self-care (01) | DRG 916 ==
LOC: ER 05:22 → MED/SURG 08:37
PROVIDERS: ADMIT Internal Medicine; ATTEND Internal Medicine
DX: R73.09 Other abnormal glucose; E83.51 Hypocalcemia; R13.11 Dysphagia, oral phase; E87.6 Hypokalemia; I10 Essential (primary) hypertension; T78.3XXA Angioneurotic edema, initial encounter; X58.XXXA Exposure to other specified factors, initial encounter; Z72.0 Tobacco use; T46.4X5A Adverse effect of angiotensin-converting-enzyme inhibitors, initial encounter; K21.9 Gastro-esophageal reflux disease without esophagitis